=== PATIENT | male | born 2000 | race Two or more races ===

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

== ENCOUNTER 2020-10-18 07:50 | Emergency (ER) | payer BC, MEDICAID ==
[~2020-10-18] VITALS: Ht 177.8 cm; Wt 61.4 kg
[2020-10-18] MEDS ORDERED: ALBU8HFA PO (08:09)
[2020-10-18] MEDS ORDERED: BENZ-16 PO (08:09)
[2020-10-18 08:12] VITALS: BP 122/82
== END 2020-10-18 09:22 | disposition home or self-care (01) ==
LOC: ER 07:50
DX: J06.9 Acute upper respiratory infection, unspecified (principal); Z20.822 Contact with and (suspected) exposure to COVID-19; R05 Cough; R50.9 Fever, unspecified; F12.90 Cannabis use, unspecified, uncomplicated; Z72.89 Other problems related to lifestyle; Z79.899 Other long term (current) drug therapy
CPT/HCPCS: 87635; 99283; C9803

== ENCOUNTER 2020-11-13 17:08 | Emergency (ER) | payer BC ==
[~2020-11-13] VITALS: Ht 177.8 cm; Wt 59.1 kg
[~2020-11-13 17:08] MED LIST: ALBU8HFA PO
[2020-11-13 18:04] VITALS: BP 129/77
== END 2020-11-13 19:22 | disposition home or self-care (01) ==
LOC: ER 17:09
DX: U07.1 COVID-19 (principal); R50.9 Fever, unspecified; F12.90 Cannabis use, unspecified, uncomplicated; Z72.89 Other problems related to lifestyle
CPT/HCPCS: 87635; 99283; C9803

== ENCOUNTER 2021-03-05 17:17 | Emergency (ER) | payer OTHER, BC ==
[~2021-03-05] VITALS: Ht 177.8 cm; Wt 61.4 kg
[2021-03-05 17:28] VITALS: BP 153/72
[2021-03-05] MEDS ORDERED: bacitracin 15gm ointment TP ONE (20:50)
[2021-03-05] MEDS ORDERED: TETanus/Pertussis (Acell)/Diphther VAC/PF (Tdap-Adult) 0.5ml syringe IMVAC ONE (20:50)
[2021-03-05] MEDS ORDERED: LIDOcaine 1% W/epiNEPHrine 1:200,000 10ml vial IJ ONE (20:50)
[2021-03-05] MEDS ORDERED: LIDOcaine 1% W/epiNEPHrine 1:100,000 20ml vial IJ ONE (21:05)
== END 2021-03-05 22:10 | disposition home or self-care (01) ==
LOC: ER 17:17
DX: S61.411A Laceration without foreign body of right hand, initial encounter (principal); F12.90 Cannabis use, unspecified, uncomplicated; Z72.89 Other problems related to lifestyle; W25.XXXA Contact with sharp glass, initial encounter; Y93.89 Activity, other specified; Y92.89 Other specified places as the place of occurrence of the external cause; Y99.8 Other external cause status
CPT/HCPCS: 12001; 73130; 90715; 99281; 99283